=== PATIENT | female | born 1950 | race Caucasian/White ===

== ENCOUNTER 2023-07-31 14:19 | Observation (INO) | payer MEDICARE ==
--- NOTE | 2023-07-31 15:29 | ERPHSYRPT ---
- History of Present Illness Time Seen by Provider: 07/31/23 14:30 Source: patient Exam Limitations: no limitations Patient Subjective Stated Complaint: PT states "I have been more confused today than normal. I sometimes cannot find the right words." Triage Nursing Assessment: PT last known well was 3 pm sunday. PT aid comes to help and she said when she left on sunday she was fine, and when she came today she was more confused than she has ever been. PT presented alert and slightly confused. PT able to speak in clear full sentences. Pt able to move all extremities. Physician History: Patient is a 73-year-old female with a history of dementia presents to our ED as a referral from [facility] for evaluation of confusion. Patient's caregiver states that patient was somewhat confused on Sunday 4 days ago. Caregiver states that she appears more confused today. No trauma no fever no nausea vomiting no diarrhea no rash. Patient is currently on Levaquin for a urinary tract infection. Patient otherwise feels well. No focal weakness. No blurred vision. No chest pain or shortness of breath. Patient/caregiver voice no other complaints or concerns at this time. Portions of this note were created with voice recognition technology. There may be grammatical, spelling, punctuation or sound alike errors Timing/Duration: day(s) (4 days) Severity: moderate Modifying Factors: Improves With: nothing Associated Symptoms: denies symptoms Allergies/Adverse Reactions: alprazolam [From Xanax] Allergy (Unknown, Verified 07/31/23 17:14) baclofen Allergy (Unknown, Verified 07/31/23 17:14) bilberry Allergy (Unknown, Verified 07/31/23 17:14) bupropion [From Wellbutrin] Allergy (Unknown, Verified 07/31/23 17:14) escitalopram [From Lexapro] Allergy (Unknown, Verified 07/31/23 17:14) fluoxetine [From Prozac] Allergy (Unknown, Verified 07/31/23 17:14) infliximab [From Remicade] Allergy (Unknown, Verified 07/31/23 17:14) nickel Allergy (Unknown, Verified 07/31/23 17:14) oxybutynin Allergy (Unknown, Verified 07/31/23 17:14) Penicillins Allergy (Unknown, Verified 07/31/23 17:14) pregabalin [From Lyrica] Allergy (Unknown, Verified 07/31/23 17:14) promethazine [From Phenergan] Allergy (Unknown, Verified 07/31/23 17:14) Serotonin 5HT-3 Antagonists Allergy (Unknown, Verified 07/31/23 17:14) Sulfa (Sulfonamide Antibiotics) Allergy (Unknown, Verified 07/31/23 17:14) adhesive Adverse Reaction (Verified 07/31/23 14:33) pain Home Medications: Apixaban [Eliquis] 5 mg PO DAILY 07/31/23 [History] Aspirin 81 gm Chew [Baby Aspirin 81 mg Chew] 81 mg PO DAILY 07/31/23 [History] Benzonatate 100 mg PO DAILY 07/31/23 [History] Cevimeline HCl 30 mg PO DAILY 07/31/23 [History] Donepezil HCl 10 mg [Aricept 10 MG] 10 mg PO HS 07/31/23 [History] Doxepin HCl 6 mg PO DAILY 07/31/23 [History] Estradiol [Estrace] 1 mg PO DAILY 07/31/23 [History] Fluticasone/Umeclidin/Vilanter [Trelegy Ellipta 200-62.5-25] 1 unit PO DAILY 07/31/23 [History] Folic Acid 1 mg [Folate 1 mg] 1 mg PO DAILY 07/31/23 [History] Furosemide [Lasix] 20 mg PO DAILY 07/31/23 [History] Gabapentin 600 mg PO DAILY 07/31/23 [History] Metoprolol Succinate 25 mg Xl* [Toprol-Xl 25MG Tablets] 25 mg PO DAILY 07/31/23 [History] Morphine Sulfate Cr 30 mg [Ms Contin 30 mg] 30 mg PO BID 07/31/23 [History] Naloxegol Oxalate [Movantik] 25 mg PO DAILY 07/31/23 [History] Omeprazole 40 mg PO DAILY 07/31/23 [History] Quetiapine Fumarate 300 mg PO DAILY 07/31/23 [History] Simvastatin 40 mg PO DAILY 07/31/23 [History] Suvorexant [Belsomra] 1 tab PO DAILY 07/31/23 [History] levoFLOXacin [Levofloxacin] 500 mg PO DAILY 07/31/23 [History] predniSONE [Prednisone] 10 mg PO DAILY 07/31/23 [History] Hx Tetanus, Diphtheria Vaccination/Date Given: No Hx Influenza Vaccination/Date Given: Yes Hx Pneumococcal Vaccination/Date Given: Yes Immunizations Up to Date: Yes Travel Risk - International Travel Have you traveled outside of the country in past 3 weeks: No - Coronavirus Screening Are you exhibiting any of the following symptoms?: No Close contact with a COVID-19 positive Pt in past 14-21 Days: No - Vaccine Status Have you recieved a Covid-19 vaccination: Yes Door Person: Unknown - Vaccination Dates Dates if Unknown: 2023 - Review of Systems Constitutional: No Symptoms, No Fever, No Chills Eyes: No Symptoms Ears, Nose, & Throat: No Symptoms Respiratory: No Symptoms, No Cough, No Dyspnea Cardiac: No Symptoms, No Chest Pain, No Edema, No Syncope Abdominal/Gastrointestinal: No Symptoms, No Abdominal Pain, No Nausea, No Vomiting, No Diarrhea Genitourinary Symptoms: No Symptoms, No Dysuria Musculoskeletal: No Symptoms, No Back Pain, No Neck Pain Skin: No Symptoms, No Rash Neurological: No Symptoms, No Dizziness, No Focal Weakness, No Sensory Changes Psychological: No Symptoms Endocrine: No Symptoms Hematologic/Lymphatic: No Symptoms Immunological/Allergic: No Symptoms All Other Systems: Reviewed and Negative - Past Medical History Pertinent Past Medical History: Yes Neurological History: Dementia, Stroke, TIA ENT History: No Pertinent History Cardiac History: Other Respiratory History: COPD Endocrine Medical History: Hypoglycemia Musculoskeletal History: Arthritis GI Medical History: GERD History: No Pertinent History Psycho-Social History: Anxiety, Depression Female Reproductive Disorders: No Pertinent History Other Medical History: hypotension - Past Surgical History Past Surgical History: Yes Other Surgical History: 2 c section. right arm. pt unsure of other surgeries - Social History Smoking Status: Current every day smoker How long have you smoked: 1 p Exposure to second hand smoke: Yes Drug Use: none Patient Lives Alone: Yes - Nursing Vital Signs Nursing Vital Signs: Initial Vital Signs Temperature 97.6 F 07/31/23 14:19 Pulse Rate 99 H 07/31/23 14:19 Respiratory Rate 20 07/31/23 14:19 Blood Pressure 116/87 07/31/23 14:19 O2 Sat by Pulse Oximetry 94 L 07/31/23 14:19 Pain Scale Pain Intensity 0 - Physical Exam General Appearance: no apparent distress, alert Eye Exam: PERRL/EOMI, eyes nml inspection Ears, Nose, Throat Exam: normal ENT inspection, TMs normal, pharynx normal, moist mucous membranes Neck Exam: normal inspection, non-tender, supple, full range of motion Respiratory Exam: normal breath sounds, lungs clear, airway intact, No respiratory distress Cardiovascular Exam: regular rate/rhythm, normal heart sounds, normal peripheral pulses Gastrointestinal/Abdomen Exam: soft, normal bowel sounds, No tenderness, No mass Back Exam: normal inspection, normal range of motion, No CVA tenderness, No vertebral tenderness Extremity Exam: normal inspection, normal range of motion, pelvis stable Neurologic Exam: alert, oriented x 3, cooperative, normal mood/affect, sensation nml, No motor deficits Skin Exam: normal color, warm, dry, No rash Lymphatic Exam: No adenopathy SpO2 Interpretation: normal SpO2: 94 O2 Delivery: Room Air - Course Nursing assessment & vital signs reviewed: Yes EKG Interpreted by Me: RATE - CT Exams Head CT Interpretation: Tele-radiologist Report (Left basal ganglia lacunar infarct) Ordered Tests: Active Orders 24 hr Category Date Time Status Circus Rider STAT Care 07/31/23 14:48 Active EKG-ER Only STAT Care 07/31/23 14:48 Active IV Insertion STAT Care 07/31/23 14:48 Active Pulse Oximetry (ED) STAT Care 07/31/23 14:48 Active Tele-Health Consult ROUTINE Cons 07/31/23 16:42 Active HEAD WITHOUT CONTRAST [CT] Stat Exams 07/31/23 15:09 Completed CBC W DIFF Stat Lab 07/31/23 14:48 Completed CMP Stat Lab 07/31/23 15:02 Completed NT PRO BNPII Stat Lab 07/31/23 15:02 Completed Transfer Order Routine Transfer 07/31/23 Ordered Medication Summary Generic Name Dose Route Start Last Admin Trade Name Freq PRN Reason Stop Dose Admin Sodium Chloride 1,000 mls @ 75 mls/hr 07/31/23 17:30 Sodium Chloride 0.9% 1000 Ml IV 08/30/23 17:29 .[id number] YIFAN Discontinued Medications Generic Name Dose Route Start Last Admin Trade Name Freq PRN Reason Stop Dose Admin Aspirin 324 mg 07/31/23 17:18 Aspirin 81 Mg Tab.Chew PO 07/31/23 17:19 STAT ONE Lab/Rad Data: Laboratory Result Diagrams 07/31/23 14:48 07/31/23 15:02 Laboratory Results 07/31/23 07/31/23 07/31/23 Range/Units 15:02 15:02 14:48 WBC 10.0 (4.0-10.5) x10^3/uL RBC 3.48 L (4.1-5.4) x10^6/uL Hgb 11.5 L (12.0-16.0) g/dL Hct 37.1 (35-47) % MCV 106.6 H (78-100) fL MCH 33.0 H (26-32) pg MCHC 31.0 L (32-36) g/dL RDW 22.5 H (11.5-14.0) % Plt Count 292 (150-450) x10^3/uL MPV 10.4 (7.5-11.0) fL Gran % 84.2 H (36.0-66.0) % Immature Gran % (Auto) 3.6 H (0.00-0.4) % Nucleat RBC Rel Count 0.4 H (0.00-0.1) % Eos # (Auto) 0.01 (0-0.5) x10^3/uL Immature Gran # (Auto) 0.36 H (0.00-0.03) x10^3u/L Absolute Lymphs (auto) 0.93 L (1.0-4.6) x10^3/uL Absolute Monos (auto) 0.24 (0.0-1.3) x10^3/uL Absolute Nucleated RBC 0.04 H (0.00-0.01) x10^3u/L Lymphocytes % 9.3 L (24.0-44.0) % Monocytes % 2.4 (0.0-12.0) % Eosinophils % 0.1 (0.00-5.0) % Basophils % 0.4 (0.0-0.4) % Absolute Granulocytes 8.45 H (1.4-6.9) x10^3/uL Basophils # 0.04 (0-0.4) x10^3/uL Sodium 134 L (135-145) mmol/L Potassium 4.4 (3.5-5.1) mmol/L Chloride 106 (98-107) mmol/L Carbon Dioxide 22 (22-30) mmol/L Anion Gap 10.6 (5-15) MEQ/L BUN 16 (7-17) mg/dL Creatinine 0.71 (0.52-1.04) mg/dL Estimated GFR 90.3 ML/MIN Glucose 87 (74-106) mg/dL Calcium 8.8 (8.4-10.2) mg/dL Total Bilirubin 0.10 L (0.2-1.3) mg/dL AST 22 (14-36) U/L ALT 20 (0-35) U/L Alkaline Phosphatase 84 (38-126) U/L NT-Pro-B Natriuret Pep 446 (<300) pg/mL Serum Total Protein 6.4 (6.3-8.2) g/dL Albumin 3.6 (3.5-5.0) g/dL Slides for Path Review YES - Progress Progress: improved Progress Note: Case discussed with neurologist at 5:09 PM. He advises MRI in light of patient's history of A-fib. We will admit patient for further evaluation and treatment. 07/31/23 17:[address] Blanchard who accepts admission at 5:15 PM 07/31/23 17:17 73-year-old female presents to our ED for evaluation of confusion. Patient has a history of dementia. She is currently on Levaquin for UTI. CT scan reveals a left basal ganglia lacunar infarct. Patient has a history of A-fib currently on Eliquis. Teleneuro advises hospitalization for MRI. Plan of care discussed with patient. She agrees to admission at [facility] for further evaluation and treatment. Portions of this note were created with voice recognition technology. There may be grammatical, spelling, punctuation or sound alike errors Complexity problem addressed is moderate acute complicated No critical care time Complexity of data reviewed and analyzed extensive. Test ordered test reviewed. Results analyzed and correlated clinically with history and physical examination. Management discussed with teleneurologist as well as hospitalist Risk of complication and or risk of morbidity/mortality of patient management is high. Patient requires hospitalization for further evaluation and treatment. Vital stable. Time spent to admit patient is approximately 30 minutes. Plan of care established for shared decision making. No social determinants of health present impede follow-up. Portions of this note were created with voice recognition technology. There may be grammatical, spelling, punctuation or sound alike errors 07/31/23 17:24 Counseled pt/family regarding: lab results, diagnosis, rad results - Departure Departure Disposition: Observation Clinical Impression: Confusion, TIA (transient ischemic attack), Macrocytic anemia Condition: Stable Critical Care Time: No Referrals: [facility] [Primary Care Provider] - Follow up/PCP as directed
[2023-07-31 15:45] LABS: Absolute Neutrophil Ct (ANC) 8.45 x10^3/uL (1.4-6.9); BASOPHIL % 0.4 % (0.0-0.4); Basophil (Absolute #) 0.04 x10^3/uL (0-0.4); Eosinophil % 0.1 % (0.00-5.0); Eosinophil (Absolute #) 0.01 x10^3/uL (0-0.5); Hematocrit 37.1 % (35-47); Hemoglobin 11.5 g/dL (12.0-16.0); IMMATURE GRAN # 0.36 x10^3u/L (0.00-0.03); IMMATURE GRAN % 3.6 % (0.00-0.4); Lymphocyte (Absolute #) 0.93 x10^3/uL (1.0-4.6); Lymphocytes % 9.3 % (24.0-44.0); Mean Cell Volume 106.6 fL (78-100); Mean Platelet Volume 10.4 fL (7.5-11.0); Monocyte (Absolute #) 0.24 x10^3/uL (0.0-1.3); Monocytes % 2.4 % (0.0-12.0); NUCLEATED RBC # 0.04 x10^3u/L (0.00-0.01); NUCLEATED RBC % 0.4 % (0.00-0.1); Neutrophil % 84.2 % (36.0-66.0); Platelet Count 292 x10^3/uL (150-450); Red Blood Count 3.48 x10^6/uL (4.1-5.4); Red Cell Distribution Width 22.5 % (11.5-14.0)
[2023-07-31 15:58] LABS: ALBUMIN 3.6 g/dL (3.5-5.0); ANION GAP 10.6 MEQ/L (5-15); BILIRUBIN,TOTAL 0.1 mg/dL (0.2-1.3); Calcium 8.8 mg/dL (8.4-10.2); Creatinine 1 0.71 mg/dL (0.52-1.04); EST GLOMERULAR FILTRATION RATE 90.3 ML/MIN; Potassium 4.4 mmol/L (3.5-5.1); Total Protein 6.4 g/dL (6.3-8.2)
--- NOTE | 2023-07-31 16:28 | XRAY ---
Indication: Confusion. Multiple contiguous axial images obtained through the head without contrast. Comparison: None Age-appropriate global atrophy. Left basal ganglia lacunar infarct. No acute intracranial hemorrhage, abnormal extra-axial fluid collection, or mass effect. Fourth ventricle is midline without hydrocephalus. Courtney-white matter differentiation preserved. Bony calvarium intact. Visualized paranasal sinuses and mastoid air cells are clear. Impression: Left basal ganglia lacunar infarct. Remaining MRI brain without contrast exam is negative.
[2023-07-31 16:50] LABS: Slide Review 1 YES
[2023-07-31] MEDS ORDERED: BABY ASPIRIN 81 MG CHEW ONE (17:26)
[2023-07-31] MEDS ORDERED: Sodium Chloride 0.9% 1000 ML 1,000 ML ONE (17:26)
[2023-07-31] MEDS: BABY ASPIRIN 81 MG CHEW PO ONE (17:28)
[2023-07-31] MEDS: Sodium Chloride 0.9% 1000 ML 1,000 ML IV SCH (17:29)
[2023-07-31] MEDS ORDERED: TYLENOL 325 MG PO PRN (22:32)
[2023-07-31] MEDS ORDERED: NON-FORMULARY ITEM (Ondansetron Hcl [Ondansetron Hcl] 4 MG Tablet) PO PRN (22:36)
--- NOTE | 2023-07-31 22:49 | PCM.HP ---
History of Present Illness - Chief Complaint Chief Complaint: receptive aphasia, concentration difficulty Date: 07/31/23 History of Present Illness: 73-year-old woman with history of prior CVA, A-fib, COPD, Raynaud's phenomenon, CAD with [place] x 3, seizures, and macular degeneration, who presents with an acute episode of confusion and receptive aphasia. Patient notes had a prior stroke 2 years ago, with some residual left-sided weakness. She has also been having some intermittent expressive aphasia for the last year, with some word finding difficulties. This morning, she was working on reconciling some bank records after her wallet was lost, when she had acute onset of being unable to follow the conversation, understand what was being said to her, or answer questions about her bank matters. Symptoms lasted for about 2 hours, then resolved on their own. At baseline, she manages all of her IADLs and ADLs, except for some assistance for her hearing impairment and macular degeneration. Denies any facial droop or focal weakness or dysarthria at the time, but did feel that she was "numb and weak all over". Her prior CVA 2 years ago was acute dysarthria and facial droop, different from her current presentation. She notes that she has been feeling poorly for the last few weeks. In the last 6 weeks, she has been hospitalized twice, initially for UTI complicated by severe delirium, then for pneumonia. She continued to feel poorly, and had a left leg cellulitis with swelling and erythema, and was placed on Levaquin and prednisone by Dr. Beal's office, with almost complete resolution of her left leg cellulitis and improvement in her cough. She denies any fevers or headaches in the last 24 hours. - Review of Systems Constitutional: No Fever, No Lethargy, No Malaise Eyes: No Photophobia, No Vision Changes Ears, Nose, & Throat: No Symptoms Respiratory: Cough, No Orthopnea, No Short Of Breath, No Wheezing Cardiac: Edema (chronic, improved), No Chest Pain, No Orthopnea, No PND Abdominal/Gastrointestinal: No Symptoms Genitourinary Symptoms: No Dysuria, No Frequency Musculoskeletal: Back Pain, Joint Pain Skin: Cellulitis Neurological: No Focal Weakness, No Gait Changes, No Headache, No Lethargy, No Seizure, No Sensory Changes, No Speech Changes, No Vertigo Psychological: No Symptoms All Other Systems: Reviewed and Negative Medications & Allergies Home Medications: Home Medication List Abatacept/Maltose 250 MG [Orencia 250 MG Vial] 250 mg IV 07/31/23 [History] Albuterol Common Canister [Ventolin Common Canister] 2 puff IH Q4H PRN PRN 07/31/23 [History Confirmed 07/31/23] Albuterol Sulfate [Proair Respiclick] 90 mcg IH Q4H PRN PRN 07/31/23 [History Confirmed 07/31/23] Apixaban [Eliquis] 5 mg PO DAILY 07/31/23 [History Confirmed 07/31/23] Aspirin 81 gm Chew [Baby Aspirin 81 mg Chew] 81 mg PO DAILY 07/31/23 [History Confirmed 07/31/23] Benzonatate 100 mg PO DAILY 07/31/23 [History Confirmed 07/31/23] Cevimeline HCl 30 mg PO DAILY 07/31/23 [History Confirmed 07/31/23] Cholecalciferol (Vitamin D3) [Weekly-D] 1,250 mcg PO WEEKLY 07/31/23 [History Confirmed 07/31/23] Cyclobenzaprine HCl 10 mg [Cyclobenzaprine 10 MG] 10 tab PO TID 07/31/23 [History Confirmed 07/31/23] Dicyclomine HCl 20 mg [Bentyl 20 mg] 20 tab PO TID 07/31/23 [History C onfirmed 07/31/23] Docusate Sodium 100 mg [Docusate Sodium 100 MG] 100 cap PO DAILY 07/31/23 [History Confirmed 07/31/23] Donepezil HCl 10 mg [Aricept 10 MG] 10 mg PO HS 07/31/23 [History Confirmed 07/31/23] Doxepin HCl 6 mg PO DAILY 07/31/23 [History Confirmed 07/31/23] Enalapril Maleate [Vasotec] 2.5 mg PO DAILY 07/31/23 [History Confirmed 07/31/23] Estradiol [Estrace] 1 mg PO DAILY 07/31/23 [History Confirmed 07/31/23] Famotidine 20 mg [Pepcid 20 MG] 20 tab PO HS 07/31/23 [History Confirmed 07/31/23] Fluticasone/Umeclidin/Vilanter [Trelegy Ellipta 200-62.5-25] 1 each IH HS 07/31/23 [History Confirmed 07/31/23] Fluticasone/Umeclidin/Vilanter [Trelegy Ellipta 200-62.5-25] 1 unit PO DAILY 07/31/23 [History Confirmed 07/31/23] Folic Acid 1 mg [Folate 1 mg] 1 mg PO DAILY 07/31/23 [History Confirmed 07/31/23] Furosemide [Lasix] 20 mg PO DAILY 07/31/23 [History Confirmed 07/31/23] Gabapentin 600 mg PO DAILY 07/31/23 [History Confirmed 07/31/23] Hydrocodone/Acetaminophen [Hydrocodone-Acetamin 5-325 mg] 5 tab PO DAILY 07/31/23 [History Confirmed 07/31/23] Hydrocortisone 2.5% 30 gm [Anusol-Hc 2.5% Cream 30 gm] PRN 07/31/23 [History] Isosorbide Mononitrate [Isosorbide Mononitrate ER] 30 tab PO DAILY 07/31/23 [History Confirmed 07/31/23] Linaclotide [Linzess] 290 mcg PO DAILY 07/31/23 [History Confirmed 07/31/23] Loratadine 10 mg [Claritin 10 mg] 10 mg PO DAILY 07/31/23 [History Confirmed 07/31/23] Memantine HCl 10 mg PO DAILY 07/31/23 [History Confirmed 07/31/23] Methotrexate Sodium/Pf [Methotrexate 25 mg/ml Vial] 25 mg IJ WEEKLY 07/31/23 [History Confirmed 07/31/23] Metoprolol Succinate 25 mg Xl* [Toprol-Xl 25MG Tablets] 25 mg PO DAILY 07/31/23 [History Confirmed 07/31/23] Morphine Sulfate Cr 30 mg [Ms Contin 30 mg] 30 mg PO BID 07/31/23 [History Confirmed 07/31/23] Naloxegol Oxalate [Movantik] 25 mg PO DAILY 07/31/23 [History Confirmed 07/31/23] Nitroglycerin 0.4 mg Tablet [Nitrostat 0.4 MG Tablet] 0.4 mg SL DAILY PRN PRN 07/31/23 [History Confirmed 07/31/23] Omeprazole 40 mg PO DAILY 07/31/23 [History Confirmed 07/31/23] Quetiapine Fumarate 300 mg PO DAILY 07/31/23 [History Confirmed 07/31/23] Simvastatin 40 mg PO DAILY 07/31/23 [History Confirmed 07/31/23] Spironolactone 25 mg [Aldactone 25 MG] 0.5 mg PO DAILY 07/31/23 [History Confirmed 07/31/23] Sucralfate 1 gm [Carafate 1 GM] 1 gm PO QID PRN PRN 07/31/23 [History Confirmed 07/31/23] Suvorexant [Belsomra] 1 tab PO DAILY 07/31/23 [History Confirmed 07/31/23] Tamsulosin HCl 0.4 mg [Flomax 0.4 MG] 0.4 mg PO DAILY 07/31/23 [History Confirmed 07/31/23] Valacyclovir HCl [Valacyclovir] 500 mg PO DAILY 07/31/23 [History Confirmed 07/31/23] levoFLOXacin [Levofloxacin] 500 mg PO DAILY 07/31/23 [History Confirmed 07/31/23] ondansetron HCL [Ondansetron HCl] 4 mg PO Q8H PRN PRN 07/31/23 [History Confirmed 07/31/23] predniSONE [Prednisone] 10 mg PO DAILY 07/31/23 [History Confirmed 07/31/23] Allergies/Adverse Reactions: Allergies Allergy/AdvReac Type Severity Reaction Status Date / Time alprazolam [From Xanax] Allergy Unknown Verified 07/31/23 17:14 baclofen Allergy Unknown Verified 07/31/23 17:14 bilberry Allergy Unknown Verified 07/31/23 17:14 bupropion [From Wellbutrin] Allergy Unknown Verified 07/31/23 17:14 escitalopram [From Lexapro] Allergy Unknown Verified 07/31/23 17:14 fluoxetine [From Prozac] Allergy Unknown Verified 07/31/23 17:14 infliximab [From Remicade] Allergy Unknown Verified 07/31/23 17:14 nickel Allergy Unknown Verified 07/31/23 17:14 oxybutynin Allergy Unknown Verified 07/31/23 17:14 Penicillins Allergy Unknown Verified 07/31/23 17:14 pregabalin [From Lyrica] Allergy Unknown Verified 07/31/23 17:14 promethazine [From Phenergan] Allergy Unknown Verified 07/31/23 17:14 Serotonin 5HT-3 Antagonists Allergy Unknown Verified 07/31/23 17:14 Sulfa (Sulfonamide Allergy Unknown Verified 07/31/23 17:14 Antibiotics) aminobenzoic acid Allergy Verified 07/31/23 19:46 adhesive AdvReac Unknown pain Verified 07/31/23 19:46 - Past Medical History Past Medical History: Yes Neurological History: Stroke ENT History: Cataracts Cardiac History: Arrhythmia, Congestive Heart Failure, Deep Vein Thrombosis, Myocardial Infarction ([place]) Respiratory History: COPD (not requiring oxygen) Musculoskelatal History: Rheumatoid Arthritis GI Medical History: GERD, Gallbladder Disease History: No Pertinent History Pyscho-Social History: Anxiety, Depression Reproductive Disorders: No Pertinent History Comment: hypotension. Raynaud's disease. R. Arm Amputee. Atrial fibrilation. anemia - Female History Are you now?: No - Past Surgical History Past Surgical History: Yes Neuro Surgical History: No Pertinent History Cardiac History: Cardiac Catheterization Respiratory Surgery: No Pertinent History GI Surgical History: Cholecystectomy Female Surgical History: Section Other Surgical History: 2 c section. right arm amputee. pt unsure of other surgeriesEye laser surgery. EGD/Colonoscopy. numerous back and neck surgeries Significant Family History: no pertinent family hx - Social History Smoking Status: Current every day smoker How long have you smoked: 50+ Exposure to second hand smoke: No Alcohol: Rarely Drug Use: none - Social Determinants of Health Will the patient participate in the screening: Yes Do you worry about a steady place to live?: No Do you have any problems with any of the following?: No known problems In the past 12 months,have you had to go without utilities?: No Have you or anyone in your house had to go without enough: No Transportation Issues: No Has anyone in your support network made you feel unsafe?: No Does the patient want assistance with any of the above?: No - Physical Exam Vital Signs: Vital Signs - 24 hr Temp Pulse Resp BP BP Pulse Ox 07/31/23 19:59 98.1 F 81 18 103/60 93 L 07/31/23 18:12 98.1 F 81 18 103/60 93 L 07/31/23 17:28 94 L 07/31/23 17:00 83 14 112/79 97 07/31/23 16:45 83 14 112/72 97 07/31/23 16:30 82 15 105/77 92 L 07/31/23 16:15 83 13 117/80 91 L 07/31/23 16:00 82 12 116/81 97 07/31/23 15:45 84 114/88 93 L 07/31/23 15:44 95 07/31/23 15:40 92 L 07/31/23 15:39 93 L 07/31/23 15:15 92 H 113/71 113/71 98 07/31/23 15:07 96 07/31/23 15:00 90 18 94/76 94 L 07/31/23 14:45 90 22 112/80 95 07/31/23 14:19 97.6 F 99 H 20 116/87 94 L General: Lying in bed in no acute distress Neuro: Face symmetric, cranial nerves intact. Arm and leg raise intact. Sensation grossly intact. Psych: Alert, oriented x 3 Cardiovascular: Regular rate and rhythm, no murmurs, no edema, but patient is wearing bilateral compression stockings Pulmonary: Very mild end expiratory wheezing throughout, no work of breathing, on room air. GI: Soft, nondistended, nontender Extremities: Left posterior kemp with some very minimal erythema around some old scratches that patient attributes to a cat, no current edema. Results - Labs Lab/Micro Results: Lab Results-Last 24 Hours 07/31/23 07/31/23 07/31/23 Range/Units 14:48 15:02 15:02 WBC 10.0 (4.0-10.5) x10^3/uL RBC 3.48 L (4.1-5.4) x10^6/uL Hgb 11.5 L (12.0-16.0) g/dL Hct 37.1 (35-47) % MCV 106.6 H (78-100) fL MCH 33.0 H (26-32) pg MCHC 31.0 L (32-36) g/dL RDW 22.5 H (11.5-14.0) % Plt Count 292 (150-450) x10^3/uL MPV 10.4 (7.5-11.0) fL Gran % 84.2 H (36.0-66.0) % Immature Gran % (Auto) 3.6 H (0.00-0.4) % Nucleat RBC Rel Count 0.4 H (0.00-0.1) % Eos # (Auto) 0.01 (0-0.5) x10^3/uL Immature Gran # (Auto) 0.36 H (0.00-0.03) x10^3u/L Absolute Lymphs (auto) 0.93 L (1.0-4.6) x10^3/uL Absolute Monos (auto) 0.24 (0.0-1.3) x10^3/uL Absolute Nucleated RBC 0.04 H (0.00-0.01) x10^3u/L Lymphocytes % 9.3 L (24.0-44.0) % Monocytes % 2.4 (0.0-12.0) % Eosinophils % 0.1 (0.00-5.0) % Basophils % 0.4 (0.0-0.4) % Absolute Granulocytes 8.45 H (1.4-6.9) x10^3/uL Basophils # 0.04 (0-0.4) x10^3/uL Sodium 134 L (135-145) mmol/L Potassium 4.4 (3.5-5.1) mmol/L Chloride 106 (98-107) mmol/L Carbon Dioxide 22 (22-30) mmol/L Anion Gap 10.6 (5-15) MEQ/L BUN 16 (7-17) mg/dL Creatinine 0.71 (0.52-1.04) mg/dL Estimated GFR 90.3 ML/MIN Glucose 87 (74-106) mg/dL Calcium 8.8 (8.4-10.2) mg/dL Total Bilirubin 0.10 L (0.2-1.3) mg/dL AST 22 (14-36) U/L ALT 20 (0-35) U/L Alkaline Phosphatase 84 (38-126) U/L NT-Pro-B Natriuret Pep 446 (<300) pg/mL Serum Total Protein 6.4 (6.3-8.2) g/dL Albumin 3.6 (3.5-5.0) g/dL Slides for Path Review YES - Radiology Impressions Radiology Exams & Impressions: Radiology Procedures Category Date Time Status CT ANGIOGRAPHY NECK [CT] Routine Exams 07/31/23 22:41 Ordered CTA HEAD W AND/OR WO CONTRAST [CT] Routine Exams 07/31/23 22:41 Ordered ECHO W/2D AND DOPPLER [US] Routine Exams 07/31/23 22:33 Ordered HEAD WITHOUT CONTRAST [CT] Stat Exams 07/31/23 15:09 Completed MRI BRAIN W/O CONTRAST [MRI] Routine Exams 07/31/23 22:[address] head old left basal ganglia lacunar infarct. Assessment/Plan (1) TIA (transient ischemic attack) Current Visit: Yes Status: Acute Assessment & Plan: 73-year-old woman with history of prior CVA, A-fib, COPD, CAD, Raynaud's phenomenon, prior seizures, and macular degeneration, who presents after likely TIA. ## TIA with episode of acute confusion and receptive aphasia, lasting about 2 hours, dissimilar to her prior CVA. She has some physiologic triggers recently, including her recent infections including UTI, pneumonia, and cellulitis. No other obvious metabolic abnormalities. Neurology was consulted, who recommended ischemic evaluation given patient's history of CVA and current A-fib. Get MRI brain, CTA head and neck Check TSH, A1c, folate, B12 Check echo with bubble study Monitor on telemetry EEG (requested by neurology for encephalopathy workup, and patient with history of seizures, although none for some time) ## Cellulitis of the left leg, currently improving on her outpatient course of Levaquin, started last . Has only minimal erythema over the left posterior calf, with resolution of her prior described edema. Will continue Levaquin for 7-day course through Can discontinue her prednisone that she was given at the same time as her breathing has improved ## A-fib currently in sinus rhythm. Continue Eliquis 5 mg BID, Toprol-XL 25 mg daily ## History of CVA, CAD Continue aspirin 81 mg daily, Toprol-XL 25 daily, enalapril 2.5 mg daily, Imdur 30 mg daily ## CHF unknown if systolic or diastolic. Currently euvolemic, although she is wearing compression stockings. Continue Lasix 20 mg daily, spironolactone 12.5 mg daily, Toprol-XL 25 daily, and enalapril 2.5 mg daily ## Dementia mild, and patient is very high functioning at baseline Continue Aricept 10 mg QHS, Namenda 10 mg daily CODE STATUS DNR Diet regular Prophylaxis Eliquis Code(s): G45.9 - TRANSIENT CEREBRAL ISCHEMIC ATTACK, UNSPECIFIED Telemedicine Encounter - Telemedicine Encounter Telemedicine Encounter: The entirety of this encounter was performed via Telemedicine"
[2023-07-31] MEDS ORDERED: DUONEB 0.5-3 MG/3 ml Neb IH PRN (22:58)
[2023-07-31] MEDS ORDERED: SUVOREXANT PO SCH (23:33)
[2023-07-31] MEDS ORDERED: Seroquel 100 MG ONE (23:39)
[2023-07-31] MEDS: QUETIAPINE FUMARATE 300 MG PO SCH (23:51)
--- NOTE | 2023-08-01 05:55 | PCM.NOTE ---
Date and Time: 08/01/23 0550 Subjective Assessment: HPI: 73-year-old woman with history of prior CVA, A-fib, COPD, Raynaud's phenomenon, CAD with [place] x 3, seizures, and macular degeneration, who presented 07/31/23 with an acute episode of confusion and receptive aphasia. Patient notes had a prior stroke 2 years ago, with some residual left-sided weakness. She has also been having some intermittent expressive aphasia for the last year, with some word finding difficulties. Admitted for TIA with CT head findings noting Left basal ganglia lacunar infarct. Neurology consulted with recs for MRI/CTA head/neck/echo which will be performed today. 08/01/23: Met with patient bedside. Endorses shortness of breath and productive cough with yellow sputum. A&O x 4 during interview, states she is not feeling confused today. Reports that she recently was hospitalized for UTI/pneumonia a few ago, and then had an office visit with Dr. Beal and was placed on levaquin for pneumonia. Discussed CT head results showing possible TIA, plan for further workup with MRI, CTA, Echo, and EEG as advised by neurology. - Review of Systems Constitutional: No Symptoms Eyes: No Symptoms Ears, Nose, & Throat: No Symptoms Respiratory: Cough, Short Of Breath Cardiac: No Symptoms Abdominal/Gastrointestinal: No Symptoms Genitourinary Symptoms: No Symptoms Musculoskeletal: No Symptoms Skin: No Symptoms Neurological: No Symptoms Psychological: No Symptoms Endocrine: No Symptoms Hematologic/Lymphatic: No Symptoms Immunological/Allergic: No Symptoms Objective Exam General Appearance: no apparent distress Neurologic Exam: alert, oriented x 3, cooperative Skin Exam: normal color Wound Assessment: Skin/Wound Assessment Wound/Incision Assessment Start: 07/31/23 18:39 Text: Status: Active Freq: Q6H Protocol: Document 08/01/23 04:07 CLARA (Rec: 08/01/23 04:08 [id number]) Wound/Incision Assessment Posterior Coccyx Wound Assessment Shift Assessment Wound Type Pressure Ulcer Wound Stage Stage I Dressing Status Dry & Intact Drainage Amount None General Appearance Open to air,Clean/Dry,Reddened Comment Supported by pillow Wound Photo Photo Taken No Eye Exam: PERRL Ears, Nose, Throat Exam: normal ENT inspection Neck Exam: normal inspection Respiratory Exam: crackles/rales Cardiovascular Exam: regular rate/rhythm, normal heart sounds Gastrointestinal/Abdomen Exam: soft, normal bowel sounds Extremity Exam: normal inspection Back Exam: normal inspection Pelvic Exam: deferred Rectal Exam: deferred Comments: 08/01/23 12:03 Right chest port OBJECTIVE DATA Vital Signs: Vital Signs - 24 hr Temp Pulse Resp BP BP Pulse Ox 08/01/23 04:00 98.1 F 82 16 86/47 93 L 07/31/23 23:53 97.8 F 80 19 110/54 94 L 07/31/23 19:59 98.1 F 81 18 103/60 93 L 07/31/23 18:12 98.1 F 81 18 103/60 93 L 07/31/23 17:28 94 L 07/31/23 17:00 83 14 112/79 97 07/31/23 16:45 83 14 112/72 97 07/31/23 16:30 82 15 105/77 92 L 07/31/23 16:15 83 13 117/80 91 L 07/31/23 16:00 82 12 116/81 97 07/31/23 15:45 84 114/88 93 L 07/31/23 15:44 95 07/31/23 15:40 92 L 07/31/23 15:39 93 L 07/31/23 15:15 92 H 113/71 113/71 98 07/31/23 15:07 96 07/31/23 15:00 90 18 94/76 94 L 07/31/23 14:45 90 22 112/80 95 07/31/23 14:19 97.6 F 99 H 20 116/87 94 L Pain Assessment - Last Documented Pain Intensity 6 Intake and Output: Intake & Output 07/29/23 07/30/23 07/31/23 08/01/23 11:59 11:59 11:59 11:59 Intake Total 240 Output Total 350 Balance -110 Weight 52.5 kg Lab Results: Lab Results-Last 24 Hours 07/31/23 07/31/23 07/31/23 Range/Units 14:48 15:02 15:02 WBC 10.0 (4.0-10.5) x10^3/uL RBC 3.48 L (4.1-5.4) x10^6/uL Hgb 11.5 L (12.0-16.0) g/dL Hct 37.1 (35-47) % MCV 106.6 H (78-100) fL MCH 33.0 H (26-32) pg MCHC 31.0 L (32-36) g/dL RDW 22.5 H (11.5-14.0) % Plt Count 292 (150-450) x10^3/uL MPV 10.4 (7.5-11.0) fL Gran % 84.2 H (36.0-66.0) % Immature Gran % (Auto) 3.6 H (0.00-0.4) % Nucleat RBC Rel Count 0.4 H (0.00-0.1) % Eos # (Auto) 0.01 (0-0.5) x10^3/uL Immature Gran # (Auto) 0.36 H (0.00-0.03) x10^3u/L Absolute Lymphs (auto) 0.93 L (1.0-4.6) x10^3/uL Absolute Monos (auto) 0.24 (0.0-1.3) x10^3/uL Absolute Nucleated RBC 0.04 H (0.00-0.01) x10^3u/L Lymphocytes % 9.3 L (24.0-44.0) % Monocytes % 2.4 (0.0-12.0) % Eosinophils % 0.1 (0.00-5.0) % Basophils % 0.4 (0.0-0.4) % Absolute Granulocytes 8.45 H (1.4-6.9) x10^3/uL Basophils # 0.04 (0-0.4) x10^3/uL Sodium 134 L (135-145) mmol/L Potassium 4.4 (3.5-5.1) mmol/L Chloride 106 (98-107) mmol/L Carbon Dioxide 22 (22-30) mmol/L Anion Gap 10.6 (5-15) MEQ/L BUN 16 (7-17) mg/dL Creatinine 0.71 (0.52-1.04) mg/dL Estimated GFR 90.3 ML/MIN Glucose 87 (74-106) mg/dL Calcium 8.8 (8.4-10.2) mg/dL Total Bilirubin 0.10 L (0.2-1.3) mg/dL AST 22 (14-36) U/L ALT 20 (0-35) U/L Alkaline Phosphatase 84 (38-126) U/L NT-Pro-B Natriuret Pep 446 (<300) pg/mL Serum Total Protein 6.4 (6.3-8.2) g/dL Albumin 3.6 (3.5-5.0) g/dL Slides for Path Review YES Radiology Exams: Radiology Procedures Category Date Time Status CT ANGIOGRAPHY NECK [CT] Routine Exams 07/31/23 22:41 Ordered CTA HEAD W AND/OR WO CONTRAST [CT] Routine Exams 07/31/23 22:41 Ordered ECHO W/2D AND DOPPLER [US] Routine Exams 07/31/23 22:33 Ordered HEAD WITHOUT CONTRAST [CT] Stat Exams 07/31/23 15:09 Completed MRI BRAIN W/O CONTRAST [MRI] Routine Exams 07/31/23 22:41 Ordered Multi-Disciplinary Progress Notes: Multi-Disciplinary Progress Notes 08/01/23 05:04 Respiratory Note by Kelly Smith Pt refused ABG this AM. States she has not had an arterial stick since she lost her arm. Initialized on 08/01/23 05:04 - END OF NOTE Assessment/Plan (1) TIA (transient ischemic attack) Current Visit: Yes Status: Acute Assessment & Plan: -CT head w/o demonstrates Left basal ganglia lacunar infarct. -Neurology consulted with recs for MRI brain, CTA head/neck, echo (bubble study not available at this facility), and EEG -ordered and pending -TSH, A1c, B12/fol WNL -continuous tele Code(s): G45.9 - TRANSIENT CEREBRAL ISCHEMIC ATTACK, UNSPECIFIED (2) Cellulitis Current Visit: Yes Status: Acute Assessment & Plan: -left leg, currently improving on her outpatient course of Levaquin, started last . Has only minimal erythema over the left posterior calf, with resolution of her prior described edema. Compression hose bilaterally Will continue Levaquin for 7-day course through d/c prednisone Code(s): L03.90 - CELLULITIS, UNSPECIFIED (3) Afib Current Visit: Yes Status: Acute Assessment & Plan: currently in sinus rhythm. Continue Eliquis 5 mg BID, Toprol-XL 25 mg daily Code(s): I48.91 - UNSPECIFIED ATRIAL FIBRILLATION (4) History of CVA (cerebrovascular accident) Current Visit: Yes Status: Acute Assessment & Plan: Continue aspirin 81 mg daily, Toprol-XL 25 daily, enalapril 2.5 mg daily, Imdur 30 mg daily Code(s): Z86.73 - PRSNL HX OF TIA (TIA), AND CEREB INFRC W/O RESID DEFICITS (5) CHF (congestive heart failure) Current Visit: Yes Status: Acute Assessment & Plan: unknown if systolic or diastolic. Currently euvolemic, although she is wearing compression stockings. Continue Lasix 20 mg daily, spironolactone 12.5 mg daily, Code(s): I50.9 - HEART FAILURE, UNSPECIFIED (6) Dementia Current Visit: Yes Status: Acute Assessment & Plan: mild, and patient is very high functioning at baseline Aricept 10 mg QHS held due to interaction with levaquin, Namenda 10 mg daily CODE STATUS DNR Diet regular Prophylaxis Eliquis Code(s): F03.90 - UNSP DEMENTIA, UNSP SEVERITY, WITHOUT BEH/PSYCH/MOOD/ANX (7) CAD (coronary artery disease) Current Visit: Yes Status: Acute Assessment & Plan: -continue Toprol-XL 25 daily, and enalapril 2.5 mg daily Code(s): I25.10 - ATHSCL HEART DISEASE OF [place] CORONARY ARTERY W/O ANG PCTRS (8) Raynaud disease Current Visit: Yes Status: Acute Assessment & Plan: -noted Code(s): I73.00 - RAYNAUD'S SYNDROME WITHOUT GANGRENE
[2023-08-01 06:05] LABS: TSH, 3RD Generation 1.21 mIU/L (0.47-4.68)
[2023-08-01] MEDS ORDERED: ZOFRAN ODT 4 MG PO PRN (07:21)
[2023-08-01] MEDS: Spiriva 18 Mcg/Cap Inhaler IH SCH (07:38)
[2023-08-01] MEDS: Advair Hfa 115/21 Common canister IH SCH (07:41)
[2023-08-01] MEDS ORDERED: MEDICATION INTERVENTION MC SCH ×5 (07:45)
[2023-08-01 08:15] LABS: Hematocrit 32.4 % (35-47); Hemoglobin 9.9 g/dL (12.0-16.0); Mean Cell Volume 107.3 fL (78-100); Mean Corpuscular Hemoglobin 32.8 pg (26-32); Mean Corpuscular Hgb Concent. 30.6 g/dL (32-36); Mean Platelet Volume 11.1 fL (7.5-11.0); Platelet Count 247 x10^3/uL (150-450); Red Blood Count 3.02 x10^6/uL (4.1-5.4); Red Cell Distribution Width 22.6 % (11.5-14.0); White Blood Count 7.2 x10^3/uL (4.0-10.5)
[2023-08-01 08:44] LABS: Slide Review YES
[2023-08-01 09:30] LABS: ALBUMIN 2.6 g/dL (3.5-5.0); ALKALINE PHOSPHATASE 68 U/L (38-126); ANION GAP 5.7 MEQ/L (5-15); BILIRUBIN,TOTAL < 0.10 mg/dL (0.2-1.3); BLOOD UREA NITROGEN 20 mg/dL (7-17); CHLORIDE 108 mmol/L (98-107); Calcium 8.2 mg/dL (8.4-10.2); Carbon Dioxide 27 mmol/L (22-30); Creatinine 1 0.77 mg/dL (0.52-1.04); EST GLOMERULAR FILTRATION RATE 81.9 ML/MIN; Folate (Folic Acid) 13.5 ng/mL (2.76 - >20); Glucose 119 mg/dL (74-106); Potassium 4.3 mmol/L (3.5-5.1); SGOT/AST 18 U/L (14-36); SGPT/ALT 16 U/L (0-35); SODIUM 136 mmol/L (135-145); Vitamin B12 357 pg/mL (239-931)
[2023-08-01 09:38] LABS: ADD URINE CULTURE? YES (NO); Appearance Clear (Clear); Bacteria Few /HPF (None Seen); Bilirubin Negative (Negative); Blood Negative (Negative); Epithelial Cells Moderate /HPF (None Seen); Glucose, Urine Negative (Negative); Hyaline Casts NONE SEEN /LPF (0-2); Ketones Negative (Negative); Leukocyte Esterase Negative (Negative); Nitrite Negative (Negative); Ph 6.5 (4.6-8.0); Protein,Urine Dip Negative (Negative); RBC 0-2 /HPF (0-5); Specific Gravity 1.025 (1.005-1.030)
[2023-08-01] MEDS: Vasotec 10 MG PO SCH (09:49)
[2023-08-01] MEDS: Imdur 30 MG PO SCH (09:50)
[2023-08-01] MEDS: Flomax 0.4 MG PO SCH (09:51)
[2023-08-01] MEDS: BENTYL 20 MG PO SCH (09:51)
[2023-08-01] MEDS: Docusate Sodium 100 MG PO SCH (09:51)
[2023-08-01] MEDS: Namenda 5 MG PO SCH (09:51)
[2023-08-01] MEDS: ACYCLOVIR PO SCH (09:51)
[2023-08-01] MEDS: ECOTRIN 81 MG PO SCH (09:52)
[2023-08-01] MEDS: ZOCOR 20MG PO SCH (09:52)
[2023-08-01] MEDS: Ms Contin 15 MG PO SCH (09:52)
[2023-08-01] MEDS: Aldactone 25 MG PO SCH (09:53)
[2023-08-01] MEDS: Cyclobenzaprine 10 MG PO SCH (09:53)
[2023-08-01] MEDS: Tessalon Perles 100 MG PO SCH (09:54)
[2023-08-01] MEDS: Levofloxacin 500 MG Tablet PO SCH (09:54)
[2023-08-01] MEDS: CLARITIN 10 MG PO SCH (09:54)
[2023-08-01] MEDS: LASIX 20 MG PO SCH (09:54)
[2023-08-01] MEDS: Protonix 40MG Tablet PO SCH (09:54)
[2023-08-01] MEDS: FOLATE 1 MG PO SCH (09:54)
[2023-08-01] MEDS: ESTRACE 1 MG PO SCH (09:55)
[2023-08-01] MEDS: ELIQUIS 2.5 MG TABLET PO SCH (09:55)
[2023-08-01] MEDS ORDERED: QUETIAPINE FUMARATE 300 MG PO SCH (10:00)
[2023-08-01] MEDS ORDERED: ENALAPRIL MALEATE 2.5 MG PO SCH (10:00)
[2023-08-01] MEDS ORDERED: NALOXEGOL OXALATE 25 MG PO SCH (10:00)
[2023-08-01] MEDS ORDERED: NON-FORMULARY ITEM (Omeprazole [Omeprazole] 40 MG Capsule.Dr) PO SCH (10:00)
[2023-08-01] MEDS ORDERED: NON-FORMULARY ITEM (Fluticasone/Umeclidin/Vilanter [Trelegy Ellipta 200-62.5-25] 1 EACH Bl PO SCH (10:00)
[2023-08-01] MEDS ORDERED: NON-FORMULARY ITEM (Simvastatin [Simvastatin] 40 MG Tablet) PO SCH (10:00)
[2023-08-01] MEDS ORDERED: DOXEPIN HCL 6 MG PO SCH (10:00)
[2023-08-01] MEDS ORDERED: NON-FORMULARY ITEM (Morphine Sulfate Cr 30 Mg*** 30 MG Tablet.Sa) PO SCH (10:00)
[2023-08-01] MEDS ORDERED: NON-FORMULARY ITEM (Apixaban [Eliquis] 5 MG Tablet) PO SCH (10:00)
[2023-08-01] MEDS ORDERED: SUVOREXANT 20 MG PO SCH (10:00)
[2023-08-01] MEDS ORDERED: NON-FORMULARY ITEM (Linaclotide [Linzess] 290 MCG Capsule) PO SCH (10:00)
[2023-08-01] MEDS ORDERED: CEVIMELINE HCL 30 MG PO SCH (10:00)
[2023-08-01] MEDS ORDERED: NON-FORMULARY ITEM (Memantine Hcl [Memantine Hcl] 10 MG Tablet) PO SCH (10:00)
[2023-08-01] MEDS ORDERED: NON-FORMULARY ITEM (Valacyclovir Hcl [Valacyclovir] 500 MG Tablet) PO SCH (10:00)
[2023-08-01] MEDS ORDERED: BABY ASPIRIN 81 MG CHEW PO SCH (10:00)
[2023-08-01] MEDS: Toprol-Xl 25MG Tablets PO SCH (10:02)
[2023-08-01] MEDS: Seroquel 100 MG PO SCH (10:02)
--- NOTE | 2023-08-01 12:41 | XRAY ---
Indication: TIA. Conventional contrast enhanced CTA neck performed using 80 cc Isovue 370 contrast. 2-D sagittal and coronal reformatted images obtained. Additional 3-D reformatted images obtained in a separate workstation. Comparison: None Visualized aortic arch is mildly arteriosclerotic including origin left subclavian artery. Anatomic variant for bovine arch. No aneurysm/dissection. Examination right carotid circulation demonstrates widely patent common carotid, carotid bulb, and external carotid arteries. Very minimal punctate eccentric calcified plaquing origin internal carotid artery. Examination left carotid circulation demonstrates normal CTA appearance to the common carotid, carotid bulb, internal carotid, and external carotid arteries. Vertebral arteries are bilaterally symmetric without critical stenosis/obstruction or AV malformation. Visualized noncontrasted soft tissues demonstrates extensive pulmonary emphysema, biapical subsegmental atelectasis/scarring, small right apical calcified granuloma, and incidental right Port-A-Cath. Thyroid gland enhances homogeneously. No pathologic cervical/supraclavicular lymphadenopathy. Osseous structures intact with osteopenia, C2-T1 fusion with intact anterior/posterior hardware, and cervical lordotic straightening. Impression: 1. 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 Punctate calcification right internal carotid artery. 2. Remaining CTA neck with contrast exam is normal. 3. Incidental CT findings including pulmonary emphysema, biapical atelectasis/scarring, right apical calcified granuloma, osteopenia, and C2-T1 fusion.
--- NOTE | 2023-08-01 12:47 | XRAY ---
Indication: TIA. Initial CT head was performed without contrast. Then conventional contrast enhanced CTA head performed using 80 cc Isovue 370 contrast. 2-D sagittal and coronal reformatted images obtained. Additional 3-D reformatted images obtained in a separate workstation. Comparison: CT head exam one day earlier. CT head without contrast exam unchanged again demonstrating age-appropriate global atrophy and remote lacunar infarct left basal ganglia. No new/acute intracranial abnormalities. Bony calvarium intact. Visualized paranasal sinuses and mastoid air cells are clear. CTA demonstrates minimal arteriosclerotic parasellar internal carotid arteries bilaterally without critical stenosis/obstruction. Normal carotid terminus with normal branching A1 and M1 segments bilaterally. Distal anterior cerebral and middle cerebral arteries are normal in CTA appearance bilaterally. Normal CTA appearance to the anterior communicating and posterior communicating arteries. Posterior circulation demonstrates normal CTA appearance to the distal left/right vertebral, basilar, left/right posterior cerebral, left/right superior cerebellar, and left/right anterior inferior cerebellar arteries. Venous sinuses/drainage unremarkable. Remaining brain negative for abnormal enhancing intra or extra-axial mass. Impression: 1. CT head without contrast demonstrates stable left basal ganglia remote lacunar infarct. No new/acute intracranial abnormalities. 2. CTA head with contrast exam demonstrates minimal arteriosclerotic disease in both parasellar internal carotid arteries. Remaining CTA head is negative.
[2023-08-01] MEDS: NORCO 5/325 MG PO PRN (13:18)
--- NOTE | 2023-08-01 15:04 | XRAY ---
Indication: TIA. Sagittal, coronal, and axial MRI brain performed without contrast using T1, T2, FLAIR, diffusion, and ADC sequences. Comparison: None Age-appropriate global atrophy. Remote lacunar infarct left basal ganglia. Diffusion images are negative for restricted signal. No acute intracranial hemorrhage, abnormal extra-axial fluid collection, or mass effect. Fourth ventricle is midline without hydrocephalus. 7/8 cranial nerve complex bilaterally symmetric. Normal flow void signal within the major intracerebral circulation. Normal appearing craniocervical junction and sella turcica. Paranasal sinuses are clear. Impression: Remote lacunar infarct left basal ganglia. Remaining MRI brain without contrast exam is negative.
[2023-08-01] MEDS: Sodium Chloride 0.9% 500 ML 500 ML IV ONE ×2 (16:14→17:00)
[2023-08-01] MEDS: Sodium Chloride 0.9% 1000 ML 1,000 ML IV SCH (19:18)
[2023-08-01] MEDS: PROAMATINE PO ONE (20:01)
[2023-08-01 20:14] LABS: Hematocrit 30.6 % (35-47); Hemoglobin 9.4 g/dL (12.0-16.0); Mean Cell Volume 106.6 fL (78-100); Mean Corpuscular Hemoglobin 32.8 pg (26-32); Mean Corpuscular Hgb Concent. 30.7 g/dL (32-36); Mean Platelet Volume 9.7 fL (7.5-11.0); Platelet Count 233 x10^3/uL (150-450); Red Blood Count 2.87 x10^6/uL (4.1-5.4); White Blood Count 6.6 x10^3/uL (4.0-10.5)
[2023-08-01] MEDS ORDERED: NON-FORMULARY ITEM (Quetiapine Fumarate [Quetiapine Fumarate] 300 MG Tablet) PO SCH (22:00)
[2023-08-01] MEDS ORDERED: NON-FORMULARY ITEM (Gabapentin [Gabapentin] 600 MG Tablet) PO SCH (22:00)
[2023-08-01] MEDS: Aricept 10 MG PO SCH (23:02)
[2023-08-01] MEDS: NEURONTIN PO SCH (23:05)
--- NOTE | 2023-08-02 05:30 | PCM.DS ---
Discharge Summary Date of Admission: 07/31/23 17:42 Date of Discharge: 08/02/23 Admitting Physician: NAI DAVIS MD Consults: Consults on Case 07/31/23 16:42 Tele-Health Consult ROUTINE Primary Care Provider: [facility] Allergies Allergies alprazolam [From Xanax] Allergy (Unknown, Verified 07/31/23 17:14) baclofen Allergy (Unknown, Verified 07/31/23 17:14) bilberry Allergy (Unknown, Verified 07/31/23 17:14) bupropion [From Wellbutrin] Allergy (Unknown, Verified 07/31/23 17:14) escitalopram [From Lexapro] Allergy (Unknown, Verified 07/31/23 17:14) fluoxetine [From Prozac] Allergy (Unknown, Verified 07/31/23 17:14) infliximab [From Remicade] Allergy (Unknown, Verified 07/31/23 17:14) nickel Allergy (Unknown, Verified 07/31/23 17:14) oxybutynin Allergy (Unknown, Verified 07/31/23 17:14) Penicillins Allergy (Unknown, Verified 07/31/23 17:14) pregabalin [From Lyrica] Allergy (Unknown, Verified 07/31/23 17:14) promethazine [From Phenergan] Allergy (Unknown, Verified 07/31/23 17:14) Serotonin 5HT-3 Antagonists Allergy (Unknown, Verified 07/31/23 17:14) Sulfa (Sulfonamide Antibiotics) Allergy (Unknown, Verified 07/31/23 17:14) aminobenzoic acid Allergy (Verified 07/31/23 19:46) adhesive Adverse Reaction (Unknown, Verified 07/31/23 19:46) pain Hospital Summary - Hospital Course Hospital Course: 73-year-old woman with history of prior CVA, A-fib, COPD, Raynaud's phenomenon, CAD with CO x 3, seizures, and macular degeneration, who presented 07/31/23 with an acute episode of confusion and receptive aphasia. Patient notes had a prior stroke 2 years ago, with some residual left-sided weakness. She has also been having some intermittent expressive aphasia for the last year, with some word finding difficulties. Admitted for TIA with CT head findings noting Left basal ganglia lacunar infarct. Neurology consulted with recs for MRI/CTA head/n rajwinder/echo. Neurology has reviewed these images with no further recommendations. Pt to follow up with neurologist as OP. Discharge Note New Diagnosis: TIA New Medications: None Follow Up: PCP/neurology Results pending: Echo - pcp to follow Latest Assessment & Plan (1) TIA (transient ischemic attack) Current Visit: Yes Status: Acute Assessment & Plan: -CT head w/o demonstrates Left basal ganglia lacunar infarct. -Neurology consulted with recs for MRI brain, CTA head/neck, echo (bubble study not available at this facility), and EEG -ordered and pending -TSH, A1c, B12/fol WNL -continuous tele Code(s): G45.9 - TRANSIENT CEREBRAL ISCHEMIC ATTACK, UNSPECIFIED (2) Cellulitis Current Visit: Yes Status: Acute Assessment & Plan: -left leg, currently improving on her outpatient course of Levaquin, started last . Has only minimal erythema over the left posterior calf, with resolution of her prior described edema. Compression hose bilaterally Will continue Levaquin for 7-day course through d/c prednisone Code(s): L03.90 - CELLULITIS, UNSPECIFIED (3) Afib Current Visit: Yes Status: Acute Assessment & Plan: currently in sinus rhythm. Continue Eliquis 5 mg BID, Toprol-XL 25 mg daily Code(s): I48.91 - UNSPECIFIED ATRIAL FIBRILLATION (4) History of CVA (cerebrovascular accident) Current Visit: Yes Status: Acute Assessment & Plan: Continue aspirin 81 mg daily, Toprol-XL 25 daily, enalapril 2.5 mg daily, Imdur 30 mg daily Code(s): Z86.73 - PRSNL HX OF TIA (TIA), AND CEREB INFRC W/O RESID DEFICITS (5) CHF (congestive heart failure) Current Visit: Yes Status: Acute Assessment & Plan: unknown if systolic or diastolic. Currently euvolemic, although she is wearing compression stockings. Continue Lasix 20 mg daily, spironolactone 12.5 mg daily, Code(s): I50.9 - HEART FAILURE, UNSPECIFIED (6) Dementia Current Visit: Yes Status: Acute Assessment & Plan: mild, and patient is very high functioning at baseline Aricept 10 mg QHS held due to interaction with levaquin, Namenda 10 mg daily I spent 35 minutes kexs-ap-dict with the patient on the day of discharge perfor talib discharge exam, discussing hospital stay and discharge instructions with patient and caregivers, preparation of discharge records, prescriptions & referral forms and addressing any questions/concerns the patient had as documented above. - Vitals & Intake/Output Vital Signs: Vital Signs Temperature 98.6 F 08/02/23 05:00 Pulse Rate 72 08/02/23 05:00 Respiratory Rate 16 08/02/23 05:00 Blood Pressure 97/55 08/02/23 05:00 O2 Sat by Pulse Oximetry 95 08/02/23 05:00 Intake & Output: Intake & Output 07/30/23 07/31/23 08/01/23 08/02/23 11:59 11:59 11:59 11:59 Intake Total 240 2837 Output Total 350 1900 Balance -110 937 Weight 52.5 kg - Lab Result Diagrams: 08/02/23 09:50 08/02/23 09:50 Lab Results-Last 24 Hrs: Lab Results-Last 24 Hours 08/01/23 08/01/23 08/01/23 Range/Units 05:02 05:02 09:21 WBC (4.0-10.5) x10^3/uL RBC (4.1-5.4) x10^6/uL Hgb (12.0-16.0) g/dL Hct (35-47) % MCV (78-100) fL MCH (26-32) pg MCHC (32-36) g/dL RDW (11.5-14.0) % Plt Count (150-450) x10^3/uL MPV (7.5-11.0) fL Sodium (135-145) mmol/L Potassium (3.5-5.1) mmol/L Chloride (98-107) mmol/L Carbon Dioxide (22-30) mmol/L Anion Gap (5-15) MEQ/L BUN (7-17) mg/dL Creatinine (0.52-1.04) mg/dL Estimated GFR ML/MIN Glucose (74-106) mg/dL Hemoglobin A1c 4.57 (4.5-6.0) % Calcium (8.4-10.2) mg/dL Total Bilirubin (0.2-1.3) mg/dL AST (14-36) U/L ALT (0-35) U/L Alkaline Phosphatase (38-126) U/L Serum Total Protein (6.3-8.2) g/dL Albumin (3.5-5.0) g/dL Triglycerides 126 (30-150) mg/dL Cholesterol 134 (50-200) mg/dL LDL Cholesterol 62 (30-100) mg/dL HDL Cholesterol 51 (40-60) mg/dL Heart Disease Risk Ratio 3.0 Vitamin B12 (239-931) pg/mL Folic Acid (2.76 - >20) ng/mL TSH 3rd Generation 1.210 (0.47-4.68) mIU/L Urine Color Yellow (Yellow) Urine Appearance Clear (Clear) Urine pH 6.5 (4.6-8.0) Ur Specific [place] 1.025 (1.005-1.030) Urine Protein Negative (Negative) Urine Glucose (UA) Negative (Negative) mg/dL Urine Ketones Negative (Negative) Urine Blood Negative (Negative) Urine Nitrite Negative (Negative) Urine Bilirubin Negative (Negative) Urine Urobilinogen 1.0 A (0.2) mg/dL Ur Leukocyte Esterase Negative (Negative) U Hyaline Cast (Auto) NONE SEEN (0-2) /LPF Urine Microscopic RBC 0-2 (0-5) /HPF Urine Microscopic WBC 6-10 A (0-5) /HPF Ur Epithelial Cells Moderate A (None Seen) /HPF Urine Bacteria Few A (None Seen) /HPF Urine Culture Reflexed YES (NO) Slides for Path Review 08/01/23 08/01/23 08/01/23 Range/Units 20:10 Unknown Unknown WBC 6.6 7.2 (4.0-10.5) x10^3/uL RBC 2.87 L 3.02 L (4.1-5.4) x10^6/uL Hgb 9.4 L 9.9 L (12.0-16.0) g/dL Hct 30.6 L 32.4 L (35-47) % MCV 106.6 H 107.3 H (78-100) fL MCH 32.8 H 32.8 H (26-32) pg MCHC 30.7 L 30.6 L (32-36) g/dL RDW 23.0 H 22.6 H (11.5-14.0) % Plt Count 233 247 (150-450) x10^3/uL MPV 9.7 11.1 H (7.5-11.0) fL Sodium 136 (135-145) mmol/L Potassium 4.3 (3.5-5.1) mmol/L Chloride 108 H (98-107) mmol/L Carbon Dioxide 27 (22-30) mmol/L Anion Gap 5.7 (5-15) MEQ/L BUN 20 H (7-17) mg/dL Creatinine 0.77 (0.52-1.04) mg/dL Estimated GFR 81.9 ML/MIN Glucose 119 H (74-106) mg/dL Hemoglobin A1c (4.5-6.0) % Calcium 8.2 L (8.4-10.2) mg/dL Total Bilirubin < 0.10 L (0.2-1.3) mg/dL AST 18 (14-36) U/L ALT 16 (0-35) U/L Alkaline Phosphatase 68 (38-126) U/L Serum Total Protein 5.0 L (6.3-8.2) g/dL Albumin 2.6 L (3.5-5.0) g/dL Triglycerides (30-150) mg/dL Cholesterol (50-200) mg/dL LDL Cholesterol (30-100) mg/dL HDL Cholesterol (40-60) mg/dL Heart Disease Risk Ratio Vitamin B12 357 (239-931) pg/mL Folic Acid 13.5 (2.76 - >20) ng/mL TSH 3rd Generation (0.47-4.68) mIU/L Urine Color (Yellow) Urine Appearance (Clear) Urine pH (4.6-8.0) Ur Specific [place] (1.005-1.030) Urine Protein (Negative) Urine Glucose (UA) (Negative) mg/dL Urine Ketones (Negative) Urine Blood (Negative) Urine Nitrite (Negative) Urine Bilirubin (Negative) Urine Urobilinogen (0.2) mg/dL Ur Leukocyte Esterase (Negative) U Hyaline Cast (Auto) (0-2) /LPF Urine Microscopic RBC (0-5) /HPF Urine Microscopic WBC (0-5) /HPF Ur Epithelial Cells (None Seen) /HPF Urine Bacteria (None Seen) /HPF Urine Culture Reflexed (NO) Slides for Path Review YES - Radiology Exams Ordered Rad Exams-Entire Visit: Radiology Procedures Category Date Time Status CT ANGIOGRAPHY NECK [CT] Routine Exams 03/05/24 22:41 Completed CTA HEAD W AND/OR WO CONTRAST [CT] Routine Exams 07/31/23 22:41 Completed ECHO W/2D AND DOPPLER [US] Routine Exams 08/01/23 09:46 Taken HEAD WITHOUT CONTRAST [CT] Stat Exams 07/31/23 15:09 Completed MRI BRAIN W/O CONTRAST [MRI] Routine Exams 08/01/23 14:00 Completed - Procedures and Test Procedures and Tests throughout Hospitalization: Therapy Orders & Screens 07/31/23 23:17 Respiratory Therapy Assessment DAILY Comment: Diagnosis: receptive aphasia, concentration difficulty 08/02/23 05:09 Oxygen Nasal Cannula 2 lpm Comment: Diagnosis: receptive aphasia, concentration difficulty Discharge Exam General Appearance: no apparent distress Neurologic Exam: alert, oriented x 3, cooperative Eye Exam: PERRL Ears, Nose, Throat Exam: normal ENT inspection Neck Exam: normal inspection Respiratory Exam: crackles/rales Cardiovascular Exam: regular rate/rhythm, normal heart sounds Gastrointestinal/Abdomen Exam: soft, normal bowel sounds Pelvic Exam: deferred Rectal Exam: deferred Back Exam: normal inspection Extremity Exam: amputations (right arm Right ursula cath) Skin Exam: normal color Wound Assessment: Skin/Wound Assessment Wound/Incision Assessment Start: 07/31/23 18:39 Text: Status: Active Freq: Q6H Protocol: Document 08/02/23 02:00 LB (Rec: 08/02/23 04:57 LB [id number]) Wound/Incision Assessment Posterior Coccyx Wound Assessment Shift Assessment Wound Type Pressure Ulcer Wound Stage Stage I Dressing Status Dry & Intact Drainage Amount None General Appearance Open to air,Clean/Dry,Reddened Comment Healing pressure area, barrier cream PRN.. Wound Photo Photo Taken No Final Diagnosis/Problem List - Final Discharge Diagnosis/Problem (1) TIA (transient ischemic attack) Current Visit: Yes Status: Acute Code(s): G45.9 - TRANSIENT CEREBRAL ISCHEMIC ATTACK, UNSPECIFIED (2) Cellulitis Current Visit: Yes Status: Acute Code(s): L03.90 - CELLULITIS, UNSPECIFIED (3) Afib Current Visit: Yes Status: Acute Code(s): I48.91 - UNSPECIFIED ATRIAL FIBRILLATION (4) History of CVA (cerebrovascular accident) Current Visit: Yes Status: Acute Code(s): Z86.73 - PRSNL HX OF TIA (TIA), AND CEREB INFRC W/O RESID DEFICITS (5) CHF (congestive heart failure) Current Visit: Yes Status: Acute Code(s): I50.9 - HEART FAILURE, UNSPECIFIED (6) Dementia Current Visit: Yes Status: Acute Code(s): F03.90 - UNSP DEMENTIA, UNSP SEVERITY, WITHOUT BEH/PSYCH/MOOD/ANX (7) CAD (coronary artery disease) Current Visit: Yes Status: Acute Code(s): I25.10 - ATHSCL HEART DISEASE OF [place] CORONARY ARTERY W/O ANG PCTRS (8) Raynaud disease Current Visit: Yes Status: Acute Code(s): I73.00 - RAYNAUD'S SYNDROME WITHOUT GANGRENE - Discharge Disposition: HOME HEALTH SERVICE Condition: Stable Prescriptions: Continue Donepezil HCl 10 mg [Aricept 10 MG] 10 mg PO HS Metoprolol Succinate 25 mg Xl* [Toprol-Xl 25MG Tablets] 25 mg PO DAILY Morphine Sulfate Cr 30 mg [Ms Contin 30 mg] 30 mg PO BID predniSONE [Prednisone] 10 mg PO DAILY levoFLOXacin [Levofloxacin] 500 mg PO DAILY Suvorexant [Belsomra] 1 tab PO DAILY Simvastatin 40 mg PO DAILY Quetiapine Fumarate 300 mg PO DAILY Omeprazole 40 mg PO DAILY Naloxegol Oxalate [Movantik] 25 mg PO DAILY Gabapentin 600 mg PO DAILY Furosemide [Lasix] 20 mg PO DAILY Fluticasone/Umeclidin/Vilanter [Trelegy Ellipta 200-62.5-25] 1 unit PO DAILY Estradiol [Estrace] 1 mg PO DAILY Doxepin HCl 6 mg PO DAILY Benzonatate 100 mg PO DAILY Apixaban [Eliquis] 5 mg PO DAILY Folic Acid 1 mg [Folate 1 mg] 1 mg PO DAILY Cevimeline HCl 30 mg PO DAILY Aspirin 81 gm Chew [Baby Aspirin 81 mg Chew] 81 mg PO DAILY Cholecalciferol (Vitamin D3) [Weekly-D] 1,250 mcg PO WEEKLY Albuterol Sulfate [Proair Respiclick] 90 mcg IH Q4H PRN PRN PRN Reason: SUPPLEMENT Albuterol Common Canister [Ventolin Common Canister] 2 puff IH Q4H PRN PRN PRN Reason: Shortness Of Breath/Wheezing Valacyclovir HCl [Valacyclovir] 500 mg PO DAILY Fluticasone/Umeclidin/Vilanter [Trelegy Ellipta 200-62.5-25] 1 each IH HS Tamsulosin HCl 0.4 mg [Flomax 0.4 MG] 0.4 mg PO DAILY Sucralfate 1 gm [Carafate 1 GM] 1 gm PO QID PRN PRN PRN Reason: Indigestion Spironolactone 25 mg [Aldactone 25 MG] 0.5 mg PO DAILY ondansetron HCL [Ondansetron HCl] 4 mg PO Q8H PRN PRN PRN Reason: Nausea Nitroglycerin 0.4 mg Tablet [Nitrostat 0.4 MG Tablet] 0.4 mg SL DAILY PRN PRN PRN Reason: Chest Pain Methotrexate Sodium/Pf [Methotrexate 25 mg/ml Vial] 25 mg IJ WEEKLY Memantine HCl 10 mg PO DAILY Loratadine 10 mg [Claritin 10 mg] 10 mg PO DAILY Linaclotide [Linzess] 290 mcg PO DAILY Isosorbide Mononitrate [Isosorbide Mononitrate ER] 30 tab PO DAILY Hydrocodone/Acetaminophen [Hydrocodone-Acetamin 5-325 mg] 5 tab PO DAILY Famotidine 20 mg [Pepcid 20 MG] 20 tab PO HS Enalapril Maleate [Vasotec] 2.5 mg PO DAILY Docusate Sodium 100 mg [Docusate Sodium 100 MG] 100 cap PO DAILY Dicyclomine HCl 20 mg [Bentyl 20 mg] 20 tab PO TID Cyclobenzaprine HCl 10 mg [Cyclobenzaprine 10 MG] 1 tab PO TID Hydrocortisone 2.5% 30 gm [Anusol-Hc 2.5% Cream 30 gm] 0 mg TOP BIDPRN PRN PRN Reason: Itching Abatacept/Maltose 250 MG [Orencia 250 MG Vial] 250 mg IV UD Instructions: Transient Ischemic Attack (DC) Follow up with: AYLIN FRANCO [Family Provider] - Call for Appointment ROD CARRION MD [NON-STAFF PHY W/O PRIVILEGES] - Office will call patient Forms: Discharge Instructions
[2023-08-02 06:53] VITALS: RESP 14; O2SAT 92
[2023-08-02 08:26] VITALS: TEMP 98.1
[2023-08-02 09:54] VITALS: BP 115/55; PULSE 82
[2023-08-02 10:04] LABS: Absolute Neutrophil Ct (ANC) 7.06 x10^3/uL (1.4-6.9); BASOPHIL % 0.4 % (0.0-0.4); Basophil (Absolute #) 0.04 x10^3/uL (0-0.4); Eosinophil (Absolute #) 0.09 x10^3/uL (0-0.5); Hematocrit 32.5 % (35-47); Hemoglobin 9.9 g/dL (12.0-16.0); IMMATURE GRAN # 0.18 x10^3u/L (0.00-0.03); IMMATURE GRAN % 1.9 % (0.00-0.4); Lymphocyte (Absolute #) 1.57 x10^3/uL (1.0-4.6); Lymphocytes % 16.6 % (24.0-44.0); Mean Cell Volume 107.3 fL (78-100); Mean Corpuscular Hemoglobin 32.7 pg (26-32); Mean Corpuscular Hgb Concent. 30.5 g/dL (32-36); Mean Platelet Volume 10.2 fL (7.5-11.0); Monocytes % 5.3 % (0.0-12.0); Neutrophil % 74.8 % (36.0-66.0); Platelet Count 260 x10^3/uL (150-450); Red Blood Count 3.03 x10^6/uL (4.1-5.4); Red Cell Distribution Width 23.2 % (11.5-14.0); White Blood Count 9.4 x10^3/uL (4.0-10.5)
[2023-08-02 10:22] LABS: ALBUMIN 2.9 g/dL (3.5-5.0); ALKALINE PHOSPHATASE 65 U/L (38-126); ANION GAP 6.4 MEQ/L (5-15); BILIRUBIN,TOTAL < 0.10 mg/dL (0.2-1.3); BLOOD UREA NITROGEN 15 mg/dL (7-17); CHLORIDE 111 mmol/L (98-107); Calcium 7.9 mg/dL (8.4-10.2); Carbon Dioxide 25 mmol/L (22-30); Creatinine 1 0.57 mg/dL (0.52-1.04); EST GLOMERULAR FILTRATION RATE 96.5 ML/MIN; Glucose 80 mg/dL (74-106); Potassium 3.3 mmol/L (3.5-5.1); SGOT/AST 19 U/L (14-36); SGPT/ALT 15 U/L (0-35); SODIUM 139 mmol/L (135-145); Total Protein 5.4 g/dL (6.3-8.2)
[2023-08-02] MEDS: Klor Con PO ONE (10:47)
[2023-08-02 11:03] LABS: Slide Review 1 YES
--- NOTE | 2023-08-10 10:33 | ECHO ---
DATE OF PROCEDURE: 08/01/2023 CLINICAL INFORMATION: Transient ischemic attack. The M-mode 2D, and Doppler echocardiogram including color flow Doppler shows the left ventricle is normal in size. There is no thrombus present. The wall thickness is normal. The contractility is normal. The ejection fraction is calculated to be 68%. There is evidence of possible impaired left ventricular relaxation. The right ventricle is normal. The left atrium is normal in size. The interatrial septum is intact. The right atrium is normal. The aortic valve opens well. The mitral valve is normal. There is mild tricuspid regurgitation. The right ventricular systolic pressure is calculated to be 55 mm of [place]. The pulmonic valve is not well visualized. The aortic root is normal. There is no pericardial effusion present. IMPRESSION: 1) NO THROMBUS IS NOTED. 2) NORMAL CONTRACTILITY OF THE LEFT VENTRICLE. 3) POSSIBLE IMPAIRED LEFT VENTRICULAR RELAXATION. 4) MILD TRICUSPID REGURGITATION. 5) SEVERE PULMONARY HYPERTENSION.
== END 2023-08-02 12:15 | disposition home health service (06) ==
LOC: ED 14:19 → MED SURG 17:42
PROVIDERS: ADMIT Internal Medicine; ATTEND Internal Medicine
DX: G45.9 Transient cerebral ischemic attack, unspecified (principal); L03.116 Cellulitis of left lower limb; Z86.73 Personal history of transient ischemic attack (TIA), and cerebral infarction without residual deficits; I11.0 Hypertensive heart disease with heart failure; I50.9 Heart failure, unspecified; F03.90 Unspecified dementia, unspecified severity, without behavioral disturbance, psychotic disturbance, mood disturbance, and anxiety; I25.10 Atherosclerotic heart disease of native coronary artery without angina pectoris; I73.00 Raynaud's syndrome without gangrene; I48.91 Unspecified atrial fibrillation; I25.2 Old myocardial infarction; L89.151 Pressure ulcer of sacral region, stage 1; F17.200 Nicotine dependence, unspecified, uncomplicated; Z79.01 Long term (current) use of anticoagulants; Z79.899 Other long term (current) drug therapy; Z20.828 Contact with and (suspected) exposure to other viral communicable diseases; Z86.718 Personal history of other venous thrombosis and embolism
CPT/HCPCS: 36000; 36415; 70450; 70496; 70498; 70551; 80053; 80061; 81001; 82607; 82746; 83036; 83721; 83880; 84132; 84443; 85025; 85027; 87086; 93005; 93041; 93268; 93306; 94640; 94760; 99285; G0378; Q3014; J1642; A9270-GY